=== PATIENT | male | born 1970 | race Hispanic/Latino ===

== ENCOUNTER → 2024-03-30 06:29 | Day surgery (SDC) | payer BC, SELFPAY ==
[2024-03-30 08:27] LABS: Glucose - Point of Care 123 mg/dl (70-99)
== END ==
LOC: GI 06:29
PROVIDERS: ATTENDING PHYSICIAN Surgery
DX: Z12.11 Encounter for screening for malignant neoplasm of colon (principal); K63.5 Polyp of colon; K62.1 Rectal polyp; K64.9 Unspecified hemorrhoids; Z86.010 Personal history of colon polyps
CPT/HCPCS: 45380; 88305; 82962

== ENCOUNTER 2024-11-26 04:51 | Emergency (ER) | payer BC, SELFPAY ==
[2024-11-26] VITALS (7 sets, daily range): BP systolic 108–143; BP diastolic 67–97; BMI 36.6
[2024-11-26 05:59] LABS: Urine Albumin Negative (Neg - Trace); Urine Bilirubin Negative (Negative); Urine Character Clear (Clear); Urine Color Yellow; Urine Glucose Negative (Negative); Urine Ketone 3+ (Negative); Urine Leukocyte Negative (Negative); Urine Nitrite Negative (Negative); Urine Occult Blood Negative (Negative); Urine Urobilinogen Negative (Neg - 1+)
[2024-11-26 06:08] LABS: % Basophils 0.2 % (0-2); % Eosinophils 0.6 % (0-6); % Immature Granulocytes 0.4 % (0-0.5); % Lymphocytes 12.8 % (20.5-51.1); % Monocytes 6.5 % (1.7-9.3); % Neutrophils 79.5 % (42.2-75.2); Absolute Lymphocytes 0.7 10^3/uL (1.2-3.4); Absolute Monocytes 0.3 10^3/uL (0.1-0.6); Hemoglobin 14.3 g/dL (13.0-18.0); Mean Corp Hgb Conc. 35.8 g/dL (33.0-37.0); Mean Corpuscular Hgb 31.6 pg (27.0-31.0); Mean Corpuscular Volume 88.5 fL (80.0-94.0); Mean Platelet Volume 9.6 fL (7.4-10.4); Nucleated Red Blood Cells % 0 % (-); Platelet Count 139 10^3/uL (130-400); Red Blood Cell Count 4.52 10^6/uL (4.70-6.10); Red Cell Dist. Width 12.5 % (11.5-14.5); White Blood Cell Count 5.1 10^3/uL (4.8-10.8)
[2024-11-26 06:24] LABS: ALT (SGPT) 49 U/L (0-50); AST (SGOT) 39 U/L (17-59); Albumin 4.4 g/dl (3.5-5.0); Alkaline Phosphatase 67 U/L (38-126); Blood Urea Nitrogen 15 mg/dl (9-20); Calcium 9.6 mg/dl (8.4-10.2); Carbon Dioxide 26 mmol/L (22-30); Chloride 101 mmol/L (98-107); Estimated Creatinine Clearance 82 ml/min; Glucose 162 mg/dl (70-99); Potassium 4.1 mmol/L (3.5-5.1); Sodium 137 mmol/L (135-145); Total Bilirubin 0.9 mg/dl (0.2-1.3); Total Protein 6.9 g/dl (6.3-8.2); eGFR > 60.00
--- NOTE | 2024-11-26 08:14 | ED.GENMED ---
History of Present Illness
General
Chief Complaint: Flank Pain
Source: patient
Exam Limitations: none
Time Seen by Provider: 11/26/24 07:36
Nursing documentation reviewed up to this point in time: agreed with
History of Present Illness
History of Present Illness:
54-year-old male with a history of mrv-fxlwmer-edpvikfmo diabetes formally on Farxiga for the last couple of years but recently stopped it for having very controlled sugars and some side effects presents for back pain which began about 2 weeks ago.
Patient says he is on a statin and he believes that the statin was initially causing the pain which feels like an achy discomfort in both his CVA regions of his back. He was describing it as being kidney pain. It is positional worse with
movement. He had no trauma. Patient said he stopped taking his atorvastatin for a few days but still was having the pain intermittently so he decided that was not the cause. He also has been on a keto diet for the last 2 months trying to manage
his blood sugars without medication and thought maybe it was related to the foods he was eating. Patient says the pain was worse last night at a 4 out of 10 rather than 2 out of 10 which it is currently and so that made him come to the hospital,
thinking that maybe he could have a kidney infection or kidney stone or some other problem. Patient says his blood sugars have been running in the 130s to 150s more recently over the last 2 weeks and then it did spike to 180 overnight. Patient has
not had any urinary discomfort, blood in the urine, vomiting, nausea, diarrhea, shortness of breath or chest pain. He has never had a kidney stone. He did not take anything for the pain. Patient says he has felt warm intermittently but has taken
his temperature and not had a fever. There is no cough or cold symptoms
Past History
Past History
ED Past Medical History: Hypercholesterolemia, NIDDM and Other (Fatty liver)
ED Past Surgical History: None
Social History
Tobacco: Non-smoker
Alcohol: None
Drug: None
Personal:
Living: with family
Employment: Employed
Family History
Family History: Other (Noncontributory)
Review of Systems
Review of Systems
Allergies reviewed?: Yes
All Other Systems: Not applicable
Phy Exam
Physical Exam
Physical Exam:
GENERAL: Alert , in no apparent distress, comfortable at rest
HEAD: NCAT
NECK: no midline tenderness, active ROM intact, no paraspinal muscle tenderness;
CARDIAC: Regular rate and rhythm, no edema
LUNGS: Clear breath sounds bilaterally, no acute respiratory distress, no wheezes/rales/rhonchi
ABDOMEN: Soft, without focal tenderness, no r/g, no cvat, normal bowel sounds, nondistended
NEUROLOGICAL: Alert and oriented, no focal neuro deficits, CN intact, 5/5 strength, sensation intact, normal ambulation
SKIN: Warm and dry,
MUSCULOSKELETAL: No edema, well perfused.
Back: No midline tenderness, no cva tenderness, albe to range back normally; no discomfort
negative straight leg raise Bilaterally
PSYCH: Normal and appropriate interaction.
Course
Orders/Labs/Results
Orders:
Orders
11/26/24 05:49
Complete Blood Count/With Diff Urgent
Comprehensive Metabolic Panel Urgent
Creatine Phosphokinase Urgent
Comment: ADD ON
Urinalysis Reflex To Culture Urgent
Date Specimen was Collected: 11/26/24
Time Specimen was Collected: 05:29
11/26/24 08:06
CT Abd/Pel (IV only)-DH only Urgent
Comment:
Reason For Exam: b/l back pain, diabetic, fever
0.9% Sodium Chloride 1000 ml [Nss] 1,000 ml IV BOLUS
Ketorolac [Toradol] 30 mg IV NOW STA
11/26/24 08:07
Add On- LAB Urgent
Tests Added?: cpk
11/26/24 08:18
Electrocardiogram (*1) Urgent
Reason for Study: Abdominal Pain
EKG- Treatment ONCE
11/26/24 08:20
COVID-19 Antigen Urgent
Source: Nasal Swab
Influenza A+B Rapid Molecular Urgent
CHEN Source: Nasal Swab
Specimen Description:
Abnormal Lab Results
11/26/24
05:49
RBC 4.52 L 10^6/uL
(4.70-6.10)
MCH 31.6 H pg
(27.0-31.0)
Absolute Lymphs (auto) 0.7 L 10^3/uL
(1.2-3.4)
Neutrophils % 79.5 H %
(42.2-75.2)
Lymphocytes % 12.8 L %
(20.5-51.1)
Glucose 162 H mg/dl
(70-99)
Urine Ketones 3+ A
(Negative)
11/26/24 05:49
11/26/24 05:49
Vital Signs
Initial and Last Documented VS:
Initial Vital Signs
Temp Pulse BP Pulse Ox
37.5 C 120 143/97 97
11/26/24 04:55 11/26/24 04:55 11/26/24 04:55 11/26/24 04:55
Last Documented Vital Signs
Temp Pulse Resp BP Pulse Ox
37.5 C 83 13 108/88 94
11/26/24 04:55 11/26/24 07:45 11/26/24 07:45 11/26/24 07:00 11/26/24 07:45
MDM/Problems Addressed
Differential Diagnosis Includes:
t musculoskeletal back pain, musculoskeletal back pain, kidney infection, kidney stone, AAA
MDM/Problems Addressed:
4-year-old male with a history of diabetes though he stopped his Farxiga a few months ago, history of hypertension presents for back pain intermittently over the 2 weeks. Patient says it is both sides of his back in the CVA region that comes and
goes, it is worse with changing position, nonradiating and mild. He says that he was attributing it to changing his diet to a keto diet recently to try to keep his sugars under control while off medications. Patient says that he also was concerned
that it could be his kidneys which is why he came today. The pain is mild at most and is worse with bending over and changing position but he had no injuries. He also has been noticing that his blood sugar is elevated in the 150 range. On exam
the patient's well-appearing, comfortable, stable vital signs, no significant back tenderness, no rashes, nontender abdomen
His workup here shows mild hyperglycemia blood sugar 160 and 3+ ketones in his urine with a normal anion gap, normal white count, negative UA otherwise. Given his diabetes, I did obtain imaging of his abdomen which showed a very large amount of
stool in his colon. This is probably the cause of his intermittent discomfort, versus having musculoskeletal back pain. Patient was given instructions to try MiraLAX twice a day for 2 to 3 days, Metamucil daily and follow-up with his family doctor
regarding his blood sugars.Y
*Critical Care Note
Total Time (30-74mins, 75-104mins- exclusive of procedures): Not Applicable
ED Attending Note
-
Portions of this chart may have been created with voice recognition software.� Occasional wrong word or��sound alike� substitutions may have occurred due to the inherent limitations of voice recognition software.
Discharge Plan
Departure
Patient Disposition: Home (Routine Discharge)
Date of Disposition: 11/26/24
Time of Disposition: 10:43
Patient with high blood pressure during this ER visit?: No
Condition: Fair
Covid-19: Not Applicable
Discharge Problem:
Hyperglycemia, Dehydration, Constipation
Instructions: Constipation, Adult ED, High blood sugar in adults - ED discharge instructions
Prescriptions:
No Action
lisinopril 40 mg Tablet
40 mg PO DAILY
icosapent ethyl [Vascepa] 1 gram Capsule
2 g PO DAILY
Referrals:
Sandra Carrillo CRNP [Family Provider] - Follow up in 2-3 days
Activity Restrictions/Additional Instructions:
Your blood sugar was a little elevated and you had some ketones in your urine so we gave you fluids but otherwise your blood work was normal. Your CAT scan looks like you have a very large amount of stool in your colon. For this take Metamucil
once a day to keep your stool soft and then MiraLAX twice a day for 2 to 3 days in a row. Though waxing and waning back pain you are having is probably from being constipated. However could also be from musculoskeletal causes. It does not seem to
be due to any kidney issues or urine infection, kidney stone, vascular issues. Please return for any severe worsening of symptoms. Otherwise because your blood sugars have been elevated you may need to go back on medications. You should call your
family doctor or exercise physiologist
Interventions
Interventions:
*Risk Screen - Suicide Last Done: 11/26/24 05:31
*General Assessment Last Done: 11/26/24 05:31
*Neglect/Abuse Screening Last Done: 11/26/24 05:31
ED- Fall Risk Assessment Last Done: 11/26/24 05:31
*ED COVID-19 Vaccine History Last Done: 11/26/24 05:31
VK-Nvicqk-Gbfmclhlto Assessment Last Done: 11/26/24 05:31
ED-Male Genitourinary Assessment Last Done: 11/26/24 05:31
Discharge Date and Time
Print Language: MACEDONIAN
[2024-11-26] MEDS: NSS 1000 IV (08:15)
[2024-11-26] MEDS: TORADOL 30 MG IV (08:16)
[2024-11-26 08:39] LABS: Creatine Phosphokinase 111 U/L (55-170)
[2024-11-26 08:39] LABS: COVID-19 Antigen Negative (Negative)
== END 2024-11-26 10:50 | disposition home or self-care (01) ==
LOC: EMR 04:51
PROVIDERS: Emergency Medicine; Physician Assistant; EMERGENCY PHYSICIAN Emergency Medicine; FAMILY PHYSICIAN Nurse Practitioner Adult Health
DX: E11.65 Type 2 diabetes mellitus with hyperglycemia (principal); E86.0 Dehydration; K59.00 Constipation, unspecified; I10 Essential (primary) hypertension
CPT/HCPCS: 99285; 96374; 96361; 74177; 80053; 81003; 82550; 85025; 87502; 87811; 93005; Q9967